=== PATIENT | male | born 1980 | race Caucasian/White ===

== ENCOUNTER 2019-12-27 21:16 | Emergency (ER) | payer OTHER ==
[~2019-12-27] VITALS: Ht 167.6 cm; Wt 116.6 kg
[~2019-12-27 21:16] MED LIST: ACET325; ALBU90OI61 INH; AMOX500 PO; AZIT250 PO; CYCL10 PO; HYDACE5 PO; HYDGUAL120 PO; IBUP200 PO; LEVFLO500 PO; METPHE18ER PO; METPHE20; METPHE20 PO; NAPR500EC PO; OTC COLD MED; OXYACE5T PO; PENVK500 PO; PRED10 PO; PRED20 PO; PROACE100 PO; PROM25 PO; QUET100; RXHYDACE PO; RXPENVK250 PO; SINUS; SULTRIDS PO; TYLENOL COLD; [UNRECOGNIZED DRUG - OTHER]
[2019-12-28] MEDS ORDERED: Vistaril25 MG PO (00:11)
== END 2019-12-28 01:10 | disposition home or self-care (01) ==
LOC: ER 21:16
DX: L74.0 Miliaria rubra (principal); F41.9 Anxiety disorder, unspecified; M79.81 Nontraumatic hematoma of soft tissue; Z88.5 Allergy status to narcotic agent; Z91.040 Latex allergy status; Z79.899 Other long term (current) drug therapy; Z79.52 Long term (current) use of systemic steroids; F90.9 Attention-deficit hyperactivity disorder, unspecified type; F32.9 Major depressive disorder, single episode, unspecified
CPT/HCPCS: 99283

== ENCOUNTER → 2021-01-12 | Outpatient (CLI) | payer SELFPAY ==
[~2021-01-12] MED LIST changes: +Vistaril25 MG PO
== END | disposition home or self-care (01) ==
LOC: LAB SHORT 16:35 → LAB 16:35
DX: D48.5 Neoplasm of uncertain behavior of skin (principal)
CPT/HCPCS: 88305